=== PATIENT | female | born 1955 | race Caucasian/White ===

== ENCOUNTER 2020-10-21 09:30 | Outpatient (CLI) | payer OTHER | END 2020-10-21 23:59 | disposition home or self-care (01) | LOC: COV 09:30 | PROVIDERS: ATTEND Family Medicine | DX: Z20.822 Contact with and (suspected) exposure to COVID-19 (principal) ==

== ENCOUNTER 2023-01-25 08:00 | Emergency (ER) | payer MEDICARE, OTHER ==
[2023-01-25 08:47] LABS: BASOPHILS # (AUTO) 0.1 10^3/uL (0.0-0.1); BASOPHILS % (AUTO) 0.7 %; EOSINOPHILS # (AUTO) 0.1 10^3/uL (0.0-0.7); EOSINOPHILS % (AUTO) 0.5 %; HCT - HEMATOCRIT 43.1 % (37.0-47.0); HGB - HEMOGLOBIN 14.3 g/dL (12.0-16.0); LYMPHOCYTES # (AUTO) 1.4 10^3/uL (1.5-3.5); LYMPHOCYTES % (AUTO) 12.4 %; MEAN CORPUSCULAR HEMOGLOBIN 30.1 pg (27.0-31.0); MEAN CORPUSCULAR HGB CONC 33.2 g/dL (32.0-36.0); MEAN CORPUSCULAR VOLUME 90.7 fL (81.0-99.0); MEAN PLATELET VOLUME 12.3 fL (7.9-10.8); MONOCYTES # (AUTO) 0.7 10^3/uL (0.0-1.0); MONOCYTES % (AUTO) 6.2 %; NEUTROPHILS # (AUTO) 8.7 10^3/uL (1.5-6.6); PLT - PLATELET COUNT 211 10^3/uL (130-450); RED BLOOD COUNT 4.75 10^6/uL (4.20-5.40); RED CELL DISTRIBUTION WIDTH 12.5 % (12.0-15.0); WHITE BLOOD COUNT 10.9 x10^3/uL (4.8-10.8)
[2023-01-25 09:01] LABS: ALBUMIN 4.3 g/dL (3.2-5.5); ALBUMIN/GLOBULIN RATIO 1.3 (1.0-2.2); BILIRUBIN,TOTAL 0.8 mg/dL (0.2-1.0); CALCIUM 9.2 mg/dL (8.5-10.3); CREATININE 0.6 mg/dL (0.4-1.0); POTASSIUM 3.9 mmol/L (3.5-5.0); TOTAL PROTEIN 7.5 g/dL (6.7-8.2)
--- NOTE | 2023-01-25 09:16 | ED Physician Documentation ---
PD HPI SYNCOPE - Stated complaint Stated Complaint: NAUSEA/SYNCOPE - Chief complaint Chief Complaint: Neuro - History obtained from History obtained from: Patient, Family - History of Present Illness Witnessed: Unwitnessed Timing - onset: Last night Duration: Unknown Preceding symptoms: Nausea / vomiting, Light headed Associated symptoms: Headache (after the fall) Contributing factors: Just stood up, Other (gardening during the dayt) Injury occurred: Fell, Head injury Treatment MANAGER MEDICAL WRITING: Fluids Similar symptoms before: Has not had sx before Recently seen: Not recently seen - Additional information Additional information: 67-year-old Darin Luu who takes no regular medications without guarding in her garden the last 2 days and last night she was on her couch she got up from her couch to go into the bathroom like she does every night felt a little lightheaded developed some nausea and the next thing she knew does she was on the ground in her closet with a wire shelf over the top of her. She abraded her nose and since the fall she has had a headache. She no longer has nausea. She has had prior episodes of lightheadedness associated with nausea she has never had a syncopal episode. Review of Systems Constitutional: denies: Fever Eyes: denies: Decreased vision Ears: denies: Loss of hearing, Ear pain Nose: denies: Rhinorrhea / runny nose, Congestion Throat: denies: Sore throat Cardiac: denies: Chest pain / pressure, Palpitations Respiratory: denies: Dyspnea, Cough GI: reports: Nausea. denies: Abdominal Pain, Vomiting, Constipation, Diarrhea : denies: Dysuria, Frequency Skin: denies: Rash Musculoskeletal: denies: Neck pain, Back pain, Extremity pain Neurologic: reports: Syncope, Headache, Head injury, LOC. 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 - Present Medications Home Medications: Ambulatory Orders Medication Instructions Recorded Confirmed No Known Home Medications 01/25/23 01/25/23 - Allergies Allergies/Adverse Reactions: Allergies Allergy/AdvReac Type Severity Reaction Status Date / Time No Known Drug Allergies Allergy Verified 01/25/23 08:08 - Social History Does the pt smoke?: No Smoking Status: Never smoker Does the pt drink ETOH?: Yes Does the pt have substance abuse?: No - Immunizations Immunizations are current?: Yes PD ED PE NORMAL - Vitals Vital signs reviewed: Yes (Hypertensive mild) - General General: Alert and oriented X 3, No acute distress, Well developed/nourished - HEENT HEENT: PERRL, EOMI, Other (There is a nasal bridge abrasion present without involvement of deeper structures and no deformity of the nose) - Neck Neck: Supple, no meningeal sign, No bony TTP - Cardiac Cardiac: RRR, No murmur - Respiratory Respiratory: No respiratory distress, Clear bilaterally - Abdomen Abdomen: Normal bowel sounds, Soft, Non tender, Non distended, No organomegaly - Back Back: No CVA TTP, No spinal TTP - Derm Derm: Normal color, Warm and dry, No rash - Extremities Extremities: No deformity, No edema - Neuro Neuro: Alert and oriented X 3, stereotyper 2-12 intact, No motor deficit, No sensory deficit, Normal speech Eye Opening: Spontaneous Motor: Obeys Commands Verbal: Oriented GCS Score: 15 - Psych Psych: Normal mood, Normal affect Results - Vitals Vitals: Vital Signs - 24 hr 01/25/23 01/25/23 01/25/23 08:04 10:16 10:54 Temperature 36.4 C L 36.7 C Heart Rate 84 74 78 Respiratory 16 13 16 Rate Blood Pressure 144/71 H 121/60 134/79 H O2 Saturation 100 100 98 Oxygen O2 Source Room air - EKG (time done) 0813 EKG releavant findings:: EKG personally interpreted by author of this note. Relevant findings are: Rate: Rate (enter#) (77) Rhythm: NSR Intervals: Normal [place] Ischemia: Normal ST segments Compare to prior EKG: Old EKG unavailable Computer interpretation: Agree with computer - Labs Labs: Laboratory Tests 01/25/23 01/25/23 01/25/23 08:39 08:39 08:39 WBC 10.9 H RBC 4.75 Hgb 14.3 Hct 43.1 MCV 90.7 MCH 30.1 MCHC 33.2 RDW 12.5 Plt Count 211 MPV 12.3 H Neut # (Auto) 8.7 H Lymph # (Auto) 1.4 L Kendall # (Auto) 0.7 Eos # (Auto) 0.1 Baso # (Auto) 0.1 Absolute Nucleated RBC 0.00 Nucleated RBC % 0.0 Sodium 138 Potassium 3.9 Chloride 106 Carbon Dioxide 25 Anion Gap 7.0 BUN 14 Creatinine 0.6 Estimated GFR (MDRD) 100 Glucose 123 H Calcium 9.2 Total Bilirubin 0.8 AST 18 ALT 18 Alkaline Phosphatase 80 Troponin I High Sens 2.5 Total Protein 7.5 Albumin 4.3 Globulin 3.2 Albumin/Globulin Ratio 1.3 Lipase 50 - Rads (name of study) CT head Relevant Findings:: Prelim report reviewed (Impression: No acute intracranial abnormality mildly.), Final report received, EMP independent interpretation of test Procedures - IVC sono (time) 0910 Bedside IVC sono: IVC measures (cm) (1.21), Dehydration (est <1 liter deficit) PD Medical Decision Making - ED course Complexity details: reviewed old records, reviewed results, re-evaluated patient, considered differential, d/w patient, d/w family Reviewed Lab Results: We revealed a complete blood count which showed a mildly elevated white blood cell count of 10.9 and normal hemoglobin hematocrit and platelets chemistries were unremarkable with normal electrolytes normal kidney and liver function and a normal high-sensitivity troponin.My interpretation of these results indicate a benign process. ED course: 67-year-old female with lightheaded and dizziness followed by nausea and syncope and collapse. She has a long history of lightheadedness associated with nausea that happens intermittently. She has not had a syncopal episode previously. Today she appears mildly dehydrated on interrogation of the inferior vena cava with POCUS and she was administered intravenous saline. There were no other findings on physical exam history or lab and ancillary exam to suggest a more ominous etiology. Departure - Departure Disposition: 01 Home, Self Care Clinical Impression: Vasovagal syncope, Dehydration Condition: Stable Instructions: ED Dehydration, ED Syncope Vasovagal Follow-Up: Devendra Bah MD [Primary Care Provider] - Comments: This on the CAT scan which is the part that is Darin, today it looks like your episode of lightheadedness and nausea resulted in a fainting episode. We did not find any abnormalities to your laboratory work and your CAT scan of your head was without evidence of internal injury. Our expectation is for you to be able to go back to her normal activities. There was evidence of mild dehydration. Discharge Date/Time: 01/25/23 10:59
[2023-01-25] MEDS ORDERED: SODIUM CHLORIDE 0.9% 1,000 ML IV STA (09:18)
--- NOTE | 2023-01-25 10:03 | CT Report ---
PROCEDURE: HEAD WO INDICATIONS: syncope head injury headache TECHNIQUE: Noncontrast 4.5 mm thick angled axial sections acquired from the foramen magnum to the vertex. For r adiation dose reduction, the following was used: automated exposure control, adjustment of mA and/or kV according to patient size. COMPARISON: None. FINDINGS: Image quality: Excellent. CSF spaces: Basal cisterns are patent. No extra-axial fluid collections. Ventricles are normal in size and shape. Brain: No midline shift. No intracranial masses or hemorrhage. Mild cerebral volume loss and perive ntricular white matter chronic small vessel ischemic changes. Betancur-white matter interface is normal. Skull and face: Calvarium and visualized facial bones are intact, without suspicious lesions. Sinuses: Visualized sinuses and mastoids are clear. IMPRESSION: No acute intracranial abnormality. Reviewed by: Po Meng MD on 01/25/2023 10:01 AM PDT Approved by: Po Meng MD on 01/25/2023 10:01 AM PDT Station ID: [id number]
[2023-01-25 10:56] VITALS: BP 134/79
== END 2023-01-25 10:59 | disposition home or self-care (01) ==
LOC: ED 08:00
DX: R55 Syncope and collapse (principal); E86.0 Dehydration
CPT/HCPCS: 36415; 80053; 83690; 84484; 85025; 93005; 96360; 99283

== ENCOUNTER 2023-03-03 09:09 | Outpatient (CLI) | payer MEDICARE, OTHER ==
--- NOTE | 2023-03-03 10:22 | DEXA Report ---
PROCEDURE: Dexa Spine and/or Hip INDICATIONS: POST MENOPAUSAL TECHNIQUE: Dual energy x-ray absorptiometry (DXA) was performed on a [employer] System. Regions measur ed are the AP Spine, femoral neck, and if needed forearm. COMPARISON: None FINDINGS: Lumbar Spine: Bone Mineral Density 0.930 g/cm/cm,T score -2.1. Left Femoral Neck: Bone Mineral Density 0.761 g/cm/cm, T score -2.0. Left Hip: Bone Mineral Density 0.798 g/cm/cm,T score -1.7. (T score greater or equal to -1.0: NORMAL) (T score from -1.1 to -2.4: OSTEOPENIA) (T score less than or equal to -2.5 to: OSTEOPOROSIS) Impression: By WHO criteria, this patient has low bone density (osteopenia). Patients with diagnosis of osteoporosis or osteopenia should have regular bone mineral density assess ment. For those eligible for Medicare, routine testing is allowed once every 2 years. Testing frequ ency can be increased for patients who have rapidly progressing disease or for those who are receivin g medical therapy to restore bone mass. Reviewed by: Josh Laboy MD on 03/03/2023 10:20 AM PDT Approved by: Josh Laboy MD on 03/03/2023 10:20 AM PDT Station ID: [id number]
== END 2023-03-03 09:10 | disposition home or self-care (01) ==
LOC: DI 09:09
PROVIDERS: ATTEND Internal Medicine
DX: M85.89 Other specified disorders of bone density and structure, multiple sites (principal)

== ENCOUNTER 2023-03-03 09:12 | Outpatient (CLI) | payer MEDICARE, OTHER ==
--- NOTE | 2023-03-06 09:31 | Mammography Report ---
BILATERAL DIGITAL SCREENING MAMMOGRAM 3D/2D: 03/03/2023 CLINICAL: Routine screening. Sister with breast cancer. Comparison is made to exams dated: 01/17/2015 mammogram, 07/16/2018 mammogram, and 01/28/2011 mammogram - [facility]. There are scattered areas of fibroglandular density in both breasts (category b / 25%-50% glandular t issue). No significant masses, calcifications, or other findings are seen in either breast. There has been no significant interval change. IMPRESSION: NEGATIVE There is no mammographic evidence of malignancy. A 1 year screening mammogram is recommended. Based on the Tyrer Cuzick model (a risk assessment model) the patients lifetime risk is 10.7% and he r 10 year risk is 5.7%. According to the ACR, ACS, and NCCN guidelines, an annual breast MRI exam major ng with mammogram is recommended if the patients lifetime risk is 20% or greater. This exam was interpreted at Station ID: [id number]. NOTE: For mammograms, a report in lay terms will be sent to the patient. Approximately 15% of breast malignancies will not be visualized mammographically. In the management of a palpable breast mass, a negative mammogram must not discourage biopsy of a clinically suspicious lesion. Electronically Signed By: Benito velázquez/gwendolyn:03/03/2023 16:34:59 letter sent: No_Letter ACR BI-RADS Category 1: Negative 3341F PARENCHYMAL PATTERN: (A) - The breast(s) demonstrate(s) scattered fibroglandular densities. BI-RADS CATEGORY: (1) - 1 Mammogram [id number] 1 year screening LATERALITY: (B)
== END 2023-03-03 09:13 | disposition home or self-care (01) ==
LOC: DI 09:12
PROVIDERS: ATTEND Internal Medicine
DX: Z12.31 Encounter for screening mammogram for malignant neoplasm of breast (principal); Z80.3 Family history of malignant neoplasm of breast

== ENCOUNTER 2023-10-31 14:55 | Outpatient (CLI) | payer MEDICARE, OTHER ==
--- NOTE | 2023-10-31 17:21 | XRAY Report ---
PROCEDURE: Cervical Spine 2-3V INDICATIONS: PARESTHESIA OF SKIN TECHNIQUE: 3 view(s) of the cervical spine were acquired. COMPARISON: None. FINDINGS: Bones: No fractures or dislocations to the T1 level. Straightening of normal cervical lordosis is se en. Mild degenerative endplate changes and bilateral facet hypertrophic changes are noted throughout cervical spine. The lateral masses of C1 appear intact on the odontoid view. No suspicious bony lesi ons. Soft tissues: No prevertebral soft tissue swelling. IMPRESSION: No cervical spine fracture or dislocation. Degenerative disc disease throughout cervical spine as abo ve. Reviewed by: Jim Montana MD on 10/31/2023 5:20 PM PST Approved by: Jim Montana MD on 10/31/2023 5:20 PM PST Station ID: [id number]
== END 2023-10-31 14:56 | disposition home or self-care (01) ==
LOC: DI.N 14:55
PROVIDERS: ATTEND Internal Medicine
DX: R20.2 Paresthesia of skin (principal); M50.30 Other cervical disc degeneration, unspecified cervical region